=== PATIENT | female | born 1995 | race Caucasian/White ===

== ENCOUNTER → 2024-09-09 07:17 | Outpatient (REF) | payer BC, SELFPAY ==
[2024-09-09 08:09] LABS: Glucose for Tolerance Test 93 mg/dl
[2024-09-09 09:49] LABS: Glucose for Tolerance Test 148 mg/dl
[2024-09-09 10:46] LABS: Glucose for Tolerance Test 140 mg/dl
[2024-09-09 12:05] LABS: Glucose for Tolerance Test 113 mg/dl
== END ==
LOC: REG 07:17
PROVIDERS: ATTENDING PHYSICIAN Specialist
DX: R73.09 Other abnormal glucose (principal)
CPT/HCPCS: 36415; 82951